=== PATIENT | female | born 1995 | race Caucasian/White ===

== ENCOUNTER 2021-08-06 11:06 | Emergency (ER) | payer MEDICAID ==
[~2021-08-06] VITALS: Ht 162.6 cm; Wt 95.0 kg
[2021-08-06 11:13] VITALS: BP 132/88
[2021-08-06] MEDS ORDERED: BENA40TA9 PO (11:18)
[2021-08-06] MEDS ORDERED: SPIR50TA5 PO (11:18)
[2021-08-06] MEDS ORDERED: CLIN300C12 PO (11:44)
== END 2021-08-06 12:05 | disposition home or self-care (01) ==
LOC: ER 11:15
DX: K11.20 Sialoadenitis, unspecified (principal); I10 Essential (primary) hypertension
CPT/HCPCS: 99283

== ENCOUNTER 2025-09-11 07:18 | Emergency (ER) | payer MEDICAID ==
[~2025-09-11] VITALS: Ht 167.6 cm; Wt 100.0 kg
[~2025-09-11 07:18] MED LIST: BENA40TA91 PO; CLIN-194 PO; SPIR50TA5 PO
[2025-09-11 07:32] VITALS: O2SAT 99
[2025-09-11 08:38] LABS: BASOPHILS % 1.4 % (0.0-2.0); EOSINOPHILS % 2.9 % (0.0-5.0); HEMATOCRIT. 41.4 % (36.0-48.0); HEMOGLOBIN. 13.5 g/dL (12.0-16.0); LYMPHOCYTES % 46.9 % (20.0-50.0); MEAN PLATELET VOLUME 7.9 fl (7.4-10.4); MONOCYTES % 6.4 % (2.0-8.0); NEUTROPHILS % 42.4 % (40.0-76.0); PLATELET 395 x1000/uL (130-400); RED BLOOD CELL COUNT 4.92 mill/uL (4.2-5.4); RED CELL DISTRIBUTION WIDTH 14.6 % (11.6-14.6)
[2025-09-11] MEDS: ONDANSETRON 4MG ODT PO ONE (08:41)
[2025-09-11] MEDS: MAGNESIUM/ALUMINUM HYDROXIDE/SIMETHICONE 30ML UDC PO ONE (08:41)
[2025-09-11 08:57] LABS: CLARITY URINE CLOUDY (CLEAR); COLOR URINE BLOODY (YELLOW); PH URINE 5.5 (4.5-8.0); SPECIFIC GRAVITY URINE 1.015 (1.005-1.030)
[2025-09-11 08:58] LABS: GLUCOSE URINE NEGATIVE (NEGATIVE); KETONES URINE NEGATIVE (NEGATIVE); LEUKOCYTE ESTERASE URINE TRACE (NEGATIVE); NITRITE URINE NEGATIVE (NEGATIVE); OCCULT BLOOD URINE 3+ (NEGATIVE); PROTEIN URINE 2+ (NEGATIVE); UROBILINOGEN URINE 0.2 E.U./dL (0.2-1.0)
[2025-09-11 08:59] LABS: CREATININE 0.7 mg/dL (0.6-1.0); UREA NITROGEN BLOOD 9 mg/dL (9-23)
[2025-09-11 09:01] LABS: ASPARTATE AMINOTRANSFERASE 15 IU/L (<34); BILIRUBIN DIRECT 0.2 mg/dL (<=3.0); BILIRUBIN TOTAL 0.6 mg/dL (0.1-1.0); HCG SCREEN NEGATIVE; PROTEIN TOTAL 8.0 g/dL (6.0-8.3)
[2025-09-11 09:24] LABS: BACTERIA URINE 3+; RBC URINE TNTC /hpf (0-2); SQUAMOUS EPITHELIAL CELL URINE 3+ /lpf (RARE/1+)
[2025-09-11 10:08] LABS: TROPONIN I HIGH SENSITIVITY < 4 ng/L (3.0-34)
[2025-09-11] MEDS: LIDOCAINE 5% PATCH TOP SCH (10:22)
[2025-09-11] MEDS: ACETAMINOPHEN 325MG TABLET PO ONE (10:23)
[2025-09-11] MEDS: KETOROLAC 15MG/ML VIAL IM ONE (10:23)
[2025-09-11] MEDS ORDERED: LIDO700A30 TP (10:35)
[2025-09-11 11:04] VITALS: BP 217/147; PULSE 94; RESP 20; TEMP 36.8; O2SAT 99
== END 2025-09-11 11:09 | disposition home or self-care (01) ==
LOC: ER 07:18
DX: R07.89 Other chest pain (principal); R10.11 Right upper quadrant pain; I10 Essential (primary) hypertension; Z92.3 Personal history of irradiation
CPT/HCPCS: 80076; 80048; 81003; 81025; 84703; 83690; 85025; 84484; 36415; 71045; 74176; 93005; 99285; Q0162; Z7610 ×2; J1885